=== PATIENT | male | born 1955 | race Caucasian/White ===

== ENCOUNTER 2021-07-02 17:43 | Emergency (ER) | payer MEDICARE, BC ==
[~2021-07-02] VITALS: Ht 170.2 cm; Wt 142.9 kg
--- NOTE | 2021-07-02 17:43 | NUR ---
PT BIB SELF C/O C/O LEFT EYE SWELLING WITH RASHES X 2 WEEKS. PT IS AAOX4, NOT IN RESPIRATORY DISTRESS, V/S STABLE, KEPT RESTED AND COMFORTABLE. WILL CONTINUE TO MONITOR.
--- NOTE | 2021-07-02 18:11 | NUR ---
AT BEDSIDE FOR EVAL.
--- NOTE | 2021-07-02 19:16 | NUR ---
[employer] AT BEDSIDE.
[2021-07-02 19:37] LABS: BASOPHILS # (AUTO) 0.3 K/uL (0.0-0.2); BASOPHILS % (AUTO) 2.5 % (0.0-2.0); EOSINOPHILS % (AUTO) 2.1 % (0.0-6.0); HEMATOCRIT 44 % (39-51); HEMOGLOBIN 14.2 g/dL (13.5-17.5); LYMPHOCYTES % (AUTO) 9.1 % (20.0-44.0); MEAN CORPUSCULAR HGB CONC 32 g/dl (31.0-36.0); MEAN CORPUSCULAR VOLUME 81 fL (80-96); MONOCYTES # (AUTO) 0.7 K/uL (0.1-1.30); MONOCYTES % (AUTO) 6.6 % (2.0-12.0); NEUTROPHILS # (AUTO) 9.1 K/uL (1.8-8.9); NEUTROPHILS % (AUTO) 79.7 % (43.0-81.0); PLATELET COUNT (AUTO) 223 K/uL (150-450); WHITE BLOOD COUNT (AUTO) 11.4 K/uL (4.3-11.0)
[2021-07-02 19:56] LABS: CALCIUM, SERUM 8.8 mg/dL (8.5-10.1); CREATININE 0.9 mg/dL (0.6-1.3); POTASSIUM 3.5 mmol/L (3.5-5.1)
[2021-07-02] MEDS ORDERED: TERB250T52 PO (20:16)
--- NOTE | 2021-07-02 20:37 | NUR ---
Patient discharged to home in stable condition. Written and verbal after care instructions given. Patient verbalizes understanding of instruction and RX. Pt ambulated out of ED. VSS.
[2021-07-02 20:38] VITALS: BP 145/72
== END 2021-07-02 20:38 | disposition home or self-care (01) ==
LOC: ER 17:43
DX: B35.0 Tinea barbae and tinea capitis (principal); H02.402 Unspecified ptosis of left eyelid; I10 Essential (primary) hypertension; E11.9 Type 2 diabetes mellitus without complications
CPT/HCPCS: 36415; 70450-TC; 80048-TC; 85025-TC

== ENCOUNTER 2024-03-30 21:25 | Emergency (ER) | payer MEDICARE, BC ==
[~2024-03-30] VITALS: Ht 172.7 cm; Wt 142.9 kg
[~2024-03-30 21:25] MED LIST: TERB250T52 PO
[2024-03-30] MEDS: LIDOCAINE /MPF 1% VIAL 5 ML VIAL TP ONE (22:37)
[2024-03-30] MEDS ORDERED: LIDOCAINE 1% INJ 50 ML MDV IJ ONE ×2 (22:37→22:57)
[2024-03-30 23:21] VITALS: BP 149/88; TEMP 98.1; O2SAT 96
== END 2024-03-30 23:27 | disposition home or self-care (01) ==
LOC: ER 21:27
DX: S01.512A Laceration without foreign body of oral cavity, initial encounter (principal); I10 Essential (primary) hypertension; E11.9 Type 2 diabetes mellitus without complications; Z79.899 Other long term (current) drug therapy; X58.XXXA Exposure to other specified factors, initial encounter; Y93.89 Activity, other specified; Y92.89 Other specified places as the place of occurrence of the external cause; Y99.8 Other external cause status
CPT/HCPCS: 41251; 99284; J3490